=== PATIENT | female | born 1985 | race African-American/Black ===

== ENCOUNTER 2019-06-27 17:54 | Inpatient (IN) | payer OTHER ==
[~2019-06-27] VITALS: Ht 156.2 cm; Wt 112.9 kg
[~2019-06-27 17:54] MED LIST: AMLO-218 PO; LISI-522 PO; METF500T PO; METR500T PO; OMEG1CAP30 PO; PSYL3.4P5 PO
[2019-06-27 23:30] VITALS: BP 126/66; PULSE 83; RESP 16
[2019-06-28] MEDS ORDERED: NACL 0.9% 3 ML SYG IV SCH (01:00)
[2019-06-28] MEDS ORDERED: ACETAMINOPHEN 325 MG TAB PO PRN (01:00)
[2019-06-28] MEDS ORDERED: KETOROLAC 30 MG INJ IV PRN (01:00)
[2019-06-28] MEDS ORDERED: ONDANSETRON 4 MG INJ IV PRN (01:00)
[2019-06-28] MEDS ORDERED: GLUCOSE GEL 15 GRAM TUBE BUCCAL PRN (01:30)
[2019-06-28] MEDS ORDERED: GLUCOSE GEL 15 GRAM TUBE PO PRN ×2 (01:30)
[2019-06-28] MEDS ORDERED: DEXTROSE 50% 50 ML SYRINGE IV PRN ×2 (01:30)
[2019-06-28] MEDS ORDERED: GLUCAGON 1 MG INJ IM PRN (01:30)
[2019-06-28] MEDS: ACCU-CHEK XX SCH (02:00)
[2019-06-28] MEDS: INSULIN ASPART [NOVOLOG] 3 ML PEN SC SCH ×5 (02:16→17:19)
[2019-06-28] MEDS: PIPER-TAZO 3.375 GM IV (PMX) 100 ML IVPB SCH ×4 (02:16→17:20)
[2019-06-28] MEDS: DEXTROSE 5%-0.45% NACL 1,000 ML IV SCH ×3 (02:17→15:21)
[2019-06-28 02:51] VITALS: BP 118/81; PULSE 91; RESP 20
[2019-06-28 08:00] VITALS: BP 118/72; PULSE 91; RESP 16
[2019-06-28] MEDS: FAMOTIDINE 20 MG INJ IV SCH ×2 (08:39→22:04)
[2019-06-28 14:00] VITALS: BP 122/73; PULSE 68; RESP 16
[2019-06-28] MEDS: Insulin NOVOLOG SS MODERATE Algorithm (SS with meals and bedtime) SC SCH ×2 (17:19→22:02)
[2019-06-28] MEDS ORDERED: INSULIN ASPART [NOVOLOG] 3 ML PEN SC SCH (17:35)
[2019-06-28 20:11] VITALS: BP 122/77; PULSE 83; RESP 18
[2019-06-28] MEDS ORDERED: [UNRECOGNIZED DRUG - OTHER] PO SCH (21:00)
[2019-06-28] MEDS ORDERED: AMLODIPINE 10 MG TAB PO SCH (21:00)
[2019-06-28] MEDS ORDERED: HYDROCHLOROTHIAZIDE PO SCH (21:00)
[2019-06-28] MEDS ORDERED: LISINOPRIL PO SCH (21:00)
[2019-06-28] MEDS ORDERED: MAGNESIUM HYDROXIDE 30ML CUP PO PRN (22:00)
[2019-06-28] MEDS: HYDROCHLOROTHIAZIDE 12.5 MG CAP PO SCH (22:03)
[2019-06-28] MEDS: LISINOPRIL 10 MG TAB PO SCH (22:03)
[2019-06-29] MEDS: ACCU-CHEK XX SCH (00:38)
[2019-06-29] MEDS: PIPER-TAZO 3.375 GM IV (PMX) 100 ML IVPB SCH ×3 (00:40→11:32)
[2019-06-29] MEDS: DEXTROSE 5%-0.45% NACL 1,000 ML IV SCH (00:40)
[2019-06-29] MEDS ORDERED: ZOLPIDEM 5 MG TAB PO PRN (01:00)
[2019-06-29 02:50] VITALS: BP 108/64; PULSE 99; RESP 18
[2019-06-29 08:00] VITALS: BP 117/69; PULSE 85; RESP 19
[2019-06-29] MEDS ORDERED: INSULIN GLARGINE [LANTus] (100 UNITS/ML) SYG SC SCH (08:00)
[2019-06-29] MEDS: FAMOTIDINE 20 MG INJ IV SCH (08:21)
[2019-06-29] MEDS: Insulin NOVOLOG SS MODERATE Algorithm (SS with meals and bedtime) SC SCH ×2 (08:25→11:30)
[2019-06-29] MEDS: INSULIN ASPART [NOVOLOG] 3 ML PEN SC SCH ×2 (08:26→12:11)
[2019-06-29] MEDS: HYDROCHLOROTHIAZIDE 12.5 MG CAP PO SCH (08:27)
[2019-06-29] MEDS: LISINOPRIL 10 MG TAB PO SCH (08:27)
[2019-06-29] MEDS ORDERED: POTASSIUM CHLORIDE (SR) 20 MEQ TAB PO STA (10:12)
[2019-06-29] MEDS ORDERED: POTASSIUM CHLORIDE (SR) 20 MEQ TAB PO ONE (14:12)
== END 2019-06-29 14:00 | disposition home or self-care (01) | DRG 392 ==
LOC: PP2 23:10
PROVIDERS: ADMIT Hospitalist; ATTEND Family Medicine
DX: K52.9 Noninfective gastroenteritis and colitis, unspecified (principal); Z68.43 Body mass index [BMI] 50.0-59.9, adult; Z68.42 Body mass index [BMI] 45.0-49.9, adult; E11.8 Type 2 diabetes mellitus with unspecified complications; E66.01 Morbid (severe) obesity due to excess calories; I10 Essential (primary) hypertension; K58.1 Irritable bowel syndrome with constipation; Z79.4 Long term (current) use of insulin; Z87.891 Personal history of nicotine dependence
CPT/HCPCS: 80048; 80053; 80061; 82270; 82962; 83036; 83735; 84100; 84436; 84443; 84479; 85025; 87045; 87081; J1815; J2543; J7042